=== PATIENT | female | born 1980 | race Caucasian/White ===

== ENCOUNTER 2016-07-09 16:36 | Emergency (ER) | payer OTHER ==
[2016-07-09 16:48] VITALS: BP 160/83; PULSE 88; TEMP 98.5; BMI 42.0
--- NOTE | 2016-07-09 17:20 | PDOC ---
History of Present Illness <Karen Mcconnell Sharyn - Last Filed: 07/09/16 23:17> - History of Present Illness Initial Comments: 07/09/16 23:21 Patient is a 36 year old female (LNMP: 14 weeks ago) with no significant medical hx who is presenting to the ED with heavy vaginal bleeding and lower back pain since today. Last week the patient went to [address] [place] [address] and received a positive test. The patient started having heavy vaginal bleeding and lower back pain starting today. The patient reports she was passing large blood clots. She came to the ED today with concern for miscarriage. Denies fever, chills, nausea, vomiting, and abdominal pain. <Winnie Parrish - Last Filed: 07/09/16 23:25> - General Chief Complaint: Vaginal Bleeding Stated Complaint: 12WKS/VAGINAL BLEEDING Time Seen by Provider: 07/09/16 17:18 Past History - Past Medical History Asthma: No Cancer: No Cardiac Disorders: No Diabetes: No HTN: No Seizures: No Thyroid Disease: No - Surgical History Abdominal Surgery: Yes - Reproductive History (#): 2 Para: 1 - Psycho/Social/Smoking Cessation Hx Anxiety: No Suicidal Ideation: No Smoking Status: No Smoking History: Never smoked Number of Cigarettes Smoked Daily: 0 Information on smoking cessation initiated: No Hx Alcohol Use: No Drug/Substance Use Hx: No Hx Substance Use Treatment: No <JayeshKarenlubna Coles - Last Filed: 07/09/16 23:17> <Winnie Parrish - Last Filed: 07/09/16 23:25> - Past Medical History Allergies/Adverse Reactions: Allergies Allergy/AdvReac Type Severity Reaction Status Date / Time No Known Allergies Allergy Verified 07/09/16 16:48 Home Medications: Ambulatory Orders No Home Medications 0 dose .ROUTE UTDICT 10/17/13 Review of Systems - Review of Systems Comments:: 07/09/16 23:23 CONSTITUTIONAL: Absent: fever, chills, diaphoresis, generalized weakness, malaise, loss of appetite HEENT: Absent: rhinorrhea, nasal congestion, throat pain, throat swelling, difficulty swallowing, mouth swelling, ear pain, eye pain, visual changes CARDIOVASCULAR: Absent: chest pain, syncope, palpitations, irregular heart rate, lightheadedness , peripheral edema RESPIRATORY: Absent: cough, shortness of breath, dyspnea with exertion, orthopnea, wheezing, stridor, hemoptysis GASTROINTESTINAL: Absent: abdominal pain, abdominal distension, nausea, vomiting, diarrhea, constipation, melena, hematochezia GENITOURINARY: Present: heavy vaginal bleeding Absent: dysuria, frequency, urgency, hesitancy, hematuria, flank pain, genital pain MUSCULOSKELETAL: Present: lower back pain Absent: myalgia, arthralgia, joint swelling SKIN: Absent: rash, itching, pallor HEMATOLOGIC/IMMUNOLOGIC: Absent: easy bleeding, easy bruising, lymphadenopathy, frequent infections ENDOCRINE: Absent: unexplained weight gain, unexplained weight loss, heat intolerance, cold intolerance NEUROLOGIC: Absent: headache, focal weakness or paresthesia, dizziness, unsteady gait, seizure, mental status changes, bladder or bowel incontinence. PSYCHIATRIC: Absent: anxiety, depression, suicidal or homicidal ideation, hallucinations <Winnie Parrish - Last Filed: 07/09/16 23:25> *Physical Exam - Vital Signs Last Vital Signs Temp Pulse Resp BP Pulse Ox 98.5 F 88 18 160/83 100 07/09/16 16:43 07/09/16 16:43 07/09/16 16:43 07/09/16 16:43 07/09/16 16:43 <Karen Mcconnell - Last Filed: 07/09/16 23:17> - Vital Signs Last Vital Signs Temp Pulse Resp BP Pulse Ox 98.5 F 88 18 160/83 100 07/09/16 16:43 07/09/16 16:43 07/09/16 16:43 07/09/16 16:43 07/09/16 16:43 - Physical Exam Comments: 07/09/16 23:23 GENERAL: Well developed, well nourished. Awake and alert. No acute distress. HEENT: Normocephalic, atraumatic. PERRLA, EOMI. No conjunctival pallor. Sclera are non- icteric. Moist mucous membranes. Oropharynx is clear. NECK: Supple. Full ROM. No JVD. Carotid pulses 2+ and symmetric, without bruits. No thyromegaly. No lymphadenopathy. CARDIOVASCULAR: Regular rate and rhythm. No murmurs, rubs, or gallops. Distal pulses are 2+ and symmetric. PULMONARY: No evidence of respiratory distress. Lungs clear to auscultation bilaterally. No wheezing, rales or rhonchi. ABDOMINAL: Soft. Non-tender. Non-distended. No rebound or guarding. No organomegaly. Normoactive bowel sounds. MUSCULOSKELETAL: Lower back tenderness. Normal range of motion at all joints. No bony deformities. EXTREMITIES: No cyanosis. No clubbing. No edema. No calf tenderness. SKIN: Warm and dry. Normal capillary refill. No rashes. No jaundice. NEUROLOGICAL: Alert, awake, appropriate. Cranial nerves 2-12 intact. Normal speech. Gait is normal without ataxia. PSYCHIATRIC: Cooperative. Good eye contact. Appropriate mood and affect. <Winnie Parrish - Last Filed: 07/09/16 23:25> ED Treatment Course - LABORATORY CBC & Chemistry Diagram: 07/09/16 18:05 <Karen Mcconnell - Last Filed: 07/09/16 23:17> - LABORATORY CBC & Chemistry Diagram: 07/09/16 18:05 - ADDITIONAL ORDERS Additional order review: Laboratory Results 07/09/16 07/09/16 18:05 18:05 Beta HCG, Quant < 1.0 Blood Type O POSITIVE Antibody Screen Negative 07/09/16 18:05 RBC 5.24 H MCV 81.9 MCHC 32.8 RDW 13.5 D MPV 8.8 - RADIOLOGY Radiograph Interpretation: 07/09/16 23:24 Clinical Quality Manager: ([email or web address]) Begin of Report Content Referring Physician: Karen Mcconnell Patient Name: Vivien Carlos THIS IS A PRELIMINARY REPORT FROM [facility] LE[facility] QUALITY CONTROL TECHNICIAN DATE OF SERVICE: 2016-07-09 19:01:54.0 IMAGES: 28 EXAM: <14WKS US first trimester pelvic ultrasound grayscale and color Doppler transabdominal transvaginal COMPARISON: None. IMPRESSION: No gestational sac visualized at this time. Left ovary not visualized. No evidence of right ovarian torsion. Recommend continued clinical and sonographic ultrasound as clinically warranted. THIS DOCUMENT HAS BEEN ELECTRONICALLY SIGNED Regina Weston MD. 07/09/2016 20:01 BROOK Weathers Please call Imaging Boating Safety Officer [phone] ([phone]) with questions. End of Report Content - Medications Given in the ED: ED Medications Discontinued Medications Generic Name Dose Route Start Last Admin Trade Name Cristy PRN Reason Stop Dose Admin Ibuprofen 600 mg 07/09/16 23:05 07/09/16 23:18 Motrin - PO 07/09/16 23:06 600 mg ONCE ONE Administration <Winnie Parrish - Last Filed: 07/09/16 23:25> *DC/Admit/Observation/Transfer <Karen Mcconnell - Last Filed: 07/09/16 23:17> - Attestations Scribe Attestion: 07/09/16 23:24 Documentation prepared by Winnie Parrish, acting as medical office supervisor for Karen Mcconnell MD. <Winnie Parrish - Last Filed: 07/09/16 23:25> Diagnosis at time of Disposition: Vaginal bleeding Low back pain Qualifiers: Chronicity: acute Back pain laterality: bilateral Sciatica presence: without sciatica Qualified Code(s): M54.5 - Low back pain - Discharge Dispostion Disposition: HOME Condition at time of disposition: Stable - Referrals Referrals: Itzel Salazar NP [Primary Care Provider] - - Patient Instructions Printed Discharge Instructions: DI for Vaginal Bleeding Additional Instructions: please return in the next 48 hours IF there any increased vaginal bleeding, dizziness,the development of abdominal pain or fever Print Language: [place] ISLANDER
[2016-07-09 18:20] LABS: MCH 26.8 pg (25.7-33.7); MCHC 32.8 g/dl (32.0-36.0); MEAN CELL VOLUME 81.9 fl (80-96); MEAN PLT VOLUME 8.8 fl (7.5-11.1); PLATELET COUNT 280 K/MM3 (134-434); RDW 13.5 % (11.6-15.6); WHITE BLOOD COUNT 11.8 K/mm3 (4.0-10.0)
[2016-07-09] MEDS ORDERED: IBUPROFEN 600 MG TABLET (FP) PO ONE ×2 (23:05→23:15)
== END 2016-07-09 23:18 | disposition home or self-care (01) ==
LOC: JER 16:36
DX: N93.8 Other specified abnormal uterine and vaginal bleeding (principal); M54.5 Low back pain
CPT/HCPCS: 36415; 76801-TC; 84702; 85027; 86850; 86900; 86901; 99282-25

== ENCOUNTER 2019-01-25 06:08 | Emergency (ER) | payer OTHER ==
[2019-01-25 06:24] VITALS: BP 161/94; PULSE 75; TEMP 97.1; BMI 45.8
[2019-01-25] MEDS ORDERED: ACETAMINOPHEN 500 MG TABLET (FP) PO ONE (07:29)
[2019-01-25] MEDS ORDERED: AMOXICILLIN 500 MG CAPSULE (FP) PO ONE (07:30)
[2019-01-25] MEDS ORDERED: ACETAMINOPHEN 325 MG TABLET (FP) ONE (07:44)
[2019-01-25] MEDS ORDERED: AMOXICILLIN 500 MG CAPSULE (FP) ONE (07:44)
--- NOTE | 2019-01-25 08:00 | PDOC ---
History of Present Illness - General Chief Complaint: Edema Stated Complaint: FACIAL SWELLING Time Seen by Provider: 01/25/19 07:10 History Source: Patient Exam Limitations: No Limitations - History of Present Illness Initial Comments: 01/25/19 07:50 38 YOF with no medical history presenting with left facial swelling and pain x 4 days, associated with left ear pain, exacerbated by jaw movements. about 6 days ago she had an upper left maxillary root canal that was uncomplicated at the dentist, not placed on antibiotics. tolerating oral and fluid intake took motrin this morning at 5am, with improvement. has also been applying cool compresses to the face for the redness and swelling Denies fever, chills, chest pain, blurry vision, visual or hearing disturbances , throat or neck pain, SOB, palpitation, dizziness, weakness, N, V, D, abdominal pain,. No new changes in medications. Allergies: None Past Medical History: as documented in EMR/HPI Social history: Lives with family. No tobacco, ETOH or drug use. Surgical history: Meds: as documented in EMR PMD: 01/25/19 08:09 Past History - Past Medical History Allergies/Adverse Reactions: Allergies Allergy/AdvReac Type Severity Reaction Status Date / Time No Known Allergies Allergy Verified 01/25/19 06:15 Home Medications: Ambulatory Orders No Home Medications 0 dose .ROUTE UTDICT 10/17/13 Amoxicillin - [Amoxicillin 500mg Capsule -] 500 mg PO BID #20 capsule 01/25/19 Asthma: No Cancer: No Cardiac Disorders: No COPD: No Diabetes: No HTN: Yes Seizures: No Thyroid Disease: No - Surgical History Abdominal Surgery: Yes - Reproductive History (#): 2 Para: 1 - Suicide/Smoking/Psychosocial Hx Smoking Status: No Smoking History: Never smoked Have you smoked in the past 12 months: No Number of Cigarettes Smoked Daily: 0 Information on smoking cessation initiated: No Hx Alcohol Use: No Drug/Substance Use Hx: No Hx Substance Use Treatment: No Review of Systems - Review of Systems Able to Perform ROS?: Yes Comments:: 01/25/19 08:12 Review of systems Constitutional: no fevers or chills. HEENT: no headache or dizziness. No congestion. No visual/hearing disturbances. no red eye or blurry vision. +left face swelling/pain. CVS: no cp or syncope. Resp: no sob. No cough. Gastrointestinal: no abdominal pain, nausea or vomiting. MUSCULOSKELETAL: No joint pain and swelling. No neck or back pain. SKIN: +facial redness/swelling. no discharge, no rash. No wounds. Hematologic: no easy bruising/bleeding. NEUROLOGIC: No headache, dizziness, LOC or altered mental status. No weakness, numbness or tingling. Allergic/Immunologic: no allergies All other systems reviewed and negative, or as documented in HPI. *Physical Exam - Vital Signs Last Vital Signs Temp Pulse Resp BP Pulse Ox 97.1 F L 75 20 161/94 98 01/25/19 06:17 01/25/19 06:17 01/25/19 06:17 01/25/19 06:17 01/25/19 06:17 - Physical Exam Comments: 01/25/19 08:13 General: Well appearing, awake and alert, NAD. nontoxic appearing. HEENT: NCAT, PERRL, EOMI, clear conjunctiva, anicteric, moist mucus membranes, clear oropharynx. Airway patent, normal phonation. Uvula midline. No sinus tenderness, TM clear, no pinna tenderness to manipulation. +left facial cheek swelling and tenderness, soft to palpation. no orbital involvement or ocular limitations, no pain with EOM, no crepitus. left maxillary molar root canal visible, mildly tender to percussion at #15-16; no erythema or bleeding or palp /visible abscess. TMJ stable bilaterally Neck: neck supple, FROM Resp: CTAB, normal and even respirations, no respiratory distress CVS: RRR, no murmurs, 2+ peripheral pulses throughout, no peripheral edema Abdomen: soft, NTND, no peritoneal signs. Back: nontender, normal inspection and ROM MSK: no edema, FREEDMAN x4, ROM intact. No clubbing or cyanosis. normal bulk and tone. Neuro: alert, no focal neuro deficits. CN II-XII grossly intact, including CN V distribution, 5/5 masseters Psych: calm and cooperative Skin: warm and well perfused, cap refill <2 sec, normal color, no rash ED Treatment Course - Medications Given in the ED: ED Medications Discontinued Medications Generic Name Dose Route Start Last Admin Trade Name Freq PRN Reason Stop Dose Admin Acetaminophen 500 mg 01/25/19 07:29 01/25/19 07:48 Tylenol - PO 01/25/19 07:30 500 mg ONCE ONE Administration Amoxicillin 500 mg 01/25/19 07:30 01/25/19 07:48 Amoxicillin - PO 01/25/19 07:31 500 mg ONCE ONE Administration Medical Decision Making - Medical Decision Making 01/25/19 08:16 History of physical examination as documented. Vital signs reviewed are within normal limits, no fever, no acute distress and nontoxic. History is consistent with post root canal inflammation and possible early tooth infection. She was not placed on antibiotics previously so will start on amoxicillin 10 day course. Ibuprofen/Tylenol as needed for pain/symptoms. Patient has very taken ibuprofen today with some relief will additionally give Tylenol here. There is no evidence of orbital cellulitis or abscess, no neuro deficits to suggest cavernous sinus thrombosis. She is nontoxic and well-appearing. told to f/u dentist call tomorrow for reevaluation. soft pureed foods and supportive management. Pt to be discharged in stable condition. Patient and family made aware of clinical impression, treatment recommendations and disposition plan, return precautions discussed (including but not limited to new or persistent/worsening symptoms, pain, fevers, or signs of infection, chest pain, respiratory distress , inability to tolerate oral intake, dehydration, syncope, or neurologic changes ). Follow up with PMD and dentist as recommended, follow up information provided , take medications as instructed for duration of time. continue with supportive care, avoid triggers and precipitants. All questions answered to patient's satisfaction and expressed understanding and comfort with this. At the time of discharge, the patient is alert, clinically improved, tolerating po and verbalizes understanding of instructions, satisfied with the care received and felt comfortable with the plan. Patient does not suffer from an acute life- threatening medical condition at this time and is safe for outpatient follow- up. *DC/Admit/Observation/Transfer Diagnosis at time of Disposition: Left facial swelling, History of root canal procedure - Discharge Dispostion Disposition: HOME Condition at time of disposition: Improved Decision to Admit order: No - Prescriptions Prescriptions: Amoxicillin - [Amoxicillin 500mg Capsule -] 500 mg PO BID #20 capsule - Referrals - Patient Instructions Printed Discharge Instructions: DI for Root Canal Treatment, DI for Dental Pain Additional Instructions: 1) Please follow-up with your primary care doctor in the next 1-2 days. Please call tomorrow for for any urgent issues. you most likely have an early tooth infection from your root canal 2) If you have any worsening of symptoms or any other concerns please return to the ED immediately. Return if worsening symptoms including fevers, headache, vomiting, visual or hearing disturbances, blurry vision, eye involvement, difficulty swallowing, throat or neck pain, abdominal pain, chest pain, shortness of breath, syncope, dehydration, inability to take things by mouth/ vomiting, altered mental status, or worsening concerning symptoms. 3) Please continue taking your home medications as directed. your medications on discharge include amoxicillin twice a day x 10 days. side effects may include upset stomach, abdominal pain, vomiting, or diarrhea. do not drink alcohol with your medications. Please take IBUPROFEN (aka MOTRIN, ADVIL, ALEVE) 400 mg and/or ACETAMINOPHEN ( aka Tylenol) 650-975 mg every 6 hours, as needed, for pain. Please do not take these medications if you have a bleeding disorder, stomach or GI ulcer problems or liver disease. Stay well hydrated and rest adequately. Make an appointment. If you cannot follow-up with your primary care doctor please return to the ED you can also put cold compresses to your face to reduce the redness and swelling 1) Hao el seguimiento con krause mdico de atencin primaria en los prximos 1 o 2 mcneil. Por favor llame maana para cualquier problema urgente. lo ms probable es que tenga marta infeccin temprana en los dientes de krause conducto radicular 2) Si tiene algn empeoramiento de los sntomas o alguna otra inquietud, vuelva a la ED de inmediato. Regrese si los sntomas empeoran, incluyendo fiebre, dolor de felipe, vmitos, trastornos visuales o auditivos, visin borrosa, compromiso ocular, dificultad para tragar, dolor de garganta o tyrel, dolor abdominal, dolor de pecho, falta de aliento, sncope, deshidratacin, incapacidad para frandy las cosas por la boca / vmitos, estado mental alterado, o empeoramiento de los sntomas. 3) Por favor contine tomando georgina medicamentos caseros segn las indicaciones. georgina medicamentos al tiffanie incluyen amoxicilina dos veces al da x 10 mcneil. los efectos secundarios pueden incluir malestar estomacal, dolor abdominal, vmitos o diarrea. No tome alcohol con georgina medicamentos. [place] IBUPROFEN (tambin conocido seun MOTRIN, ADVIL, ALEVE) 400 mg y / o ACETAMINOPHEN (tambin conocido seun Tylenol) 650-975 mg cada 6 horas, segn sea necesario, para el dolor. No tome estos medicamentos si tiene un trastorno hemorrgico, problemas estomacales o lceras GI o marta enfermedad heptica. Mantngase madelin hidratado y descanse adecuadamente. Hacer marta kenneth Si no puede hacer un seguimiento con krause mdico de atencin primaria, vuelva a la ED Tambin puede poner compresas fras en la lilli para reducir el enrojecimiento y la hinchazn. - Post Discharge Activity Forms/Work/School Notes: Back to Work
== END 2019-01-25 08:31 | disposition home or self-care (01) ==
LOC: JER 06:08
DX: I10 Essential (primary) hypertension (principal); Z98.818 Other dental procedure status
CPT/HCPCS: 99281-25